=== PATIENT | male | born 1985 | race Caucasian/White ===

== ENCOUNTER 2021-02-25 07:45 | Outpatient (CLI) | payer BC, SELFPAY ==
--- NOTE | ~2021-02-25 | XR_ITS ---
EXAMINATION: XR hip LT min 2V DATE: 02/25/2021 08:21 INDICATION: Left hip pain TECHNIQUE: Anteroposterior and frog-leg lateral views of the left hip were obtained. COMPARISON: None. FINDINGS: Alignment is normal. No fracture or suspected avascular necrosis. Normal femoral head neck morphology . Left hip and bilateral sacroiliac joint spaces are normal. Phlebolith in the right hemipelvis. IMPRESSION: 1. . Negative left hip radiographs. Reviewed, dictated and finalized at location A.
--- NOTE | ~2021-02-25 | XR_ITS ---
EXAMINATION: XR lumbar spine min 4V DATE: 02/25/2021 08:21 INDICATION: Chronic bilateral low back pain. TECHNIQUE: Anteroposterior, standing lateral views in neutral, flexion and extension and cone-down la teral lumbosacral views of the lumbar spine were obtained. COMPARISON: None. FINDINGS: Negligible lumbar levocurvature. Sagittal alignment is normal with normal motion on flexion and exten silvana. Vertebral body and disc heights are normal. Bilateral facet and sacroiliac joints appear normal . IMPRESSION: 1. Negligible lumbar levocurvature. Otherwise negative lumbar spine radiographs. Reviewed, dictated and finalized at location A. IMPRESSION: 1. Negligible lumbar levocurvature. Otherwise negative lumbar spine radiographs .
== END 2021-02-25 07:46 ==
PROVIDERS: PCP Physician Assistant; Visit Provider Physician Assistant
DX: M25.552 Pain in left hip (principal); M54.5 Low back pain; G89.29 Other chronic pain
CPT/HCPCS: 72110; 73502